=== PATIENT | male | born 1940 | race Hispanic/Latino ===

== ENCOUNTER 2017-11-24 08:10 | Emergency (ER) | payer MEDICARE ==
[2017-11-24 09:22] LABS: Bacteria,Urine 2+ /HPF (Negative); Bilirubin,Urine NEG (Negative); Blood,Urine LG (Negative); Color,Urine Yellow (Yellow); Mucus,Urine FEW /HPF; Nitrite,Urine POS (Negative); Urobilinogen,Urine < 2.0 mg/dL (<2.0)
[2017-11-24 09:27] LABS: RBC,Urine > 182.0 /HPF (0.0-6.0); WBC,Urine > 182.0 /HPF (0.0-6.0)
--- NOTE | 2017-11-24 11:07 | Emergency Department Report ---
ED Male HPI - General Chief complaint: Urogenital-Male Stated complaint: URINE RETENTION Time Seen by Provider: 11/24/17 10:56 Source: patient, RN notes reviewed Mode of arrival: Ambulatory Limitations: No Limitations - History of Present Illness Initial comments: This is a 77-year-old male who was previously unknown to this provider, his primary care doctor is Dr. Jose Barth, and he presented to the ER with a complaint of inability to urinate. He has no headache, neck pain, chest pain, abdominal pain, shortness of breath or testicular pain. Patient had a Stanton catheter placed prior to my evaluation and arrival, and this completely resolved his symptoms. The patient has no complaints at this time, and he would like to go home. Patient reports that his prostate was "checked out" by his primary care doctor within the past 5 years. He has no rectal pain or dyschezia. MD Complaint: other -: Sudden Consistency: now resolved Improves with: other Worsens with: none urinary retention, dysuria. denies: discharge, swelling, mass, rash, blood in urine, fever, nausea/vomiting, incontinence - Related Data Previous Rx's Medication Instructions Recorded Last Taken Type Nitrofurantoin [place]/M-Cryst 100 mg PO Q12HR #13 capsule 11/24/17 Unknown Rx [Macrobid CAP] Tamsulosin [Flomax] 0.4 mg PO QDAY #30 cap 11/24/17 Unknown Rx Allergies Allergy/AdvReac Type Severity Reaction Status Date / Time No Known Allergies Allergy Unverified 11/24/17 08:43 ED Review of Systems ROS: Stated complaint: URINE RETENTION Other details as noted in HPI ED Past Medical Hx - Past Medical History Previous Medical History?: Yes Hx Hypertension: Yes - Surgical History Past Surgical History?: Yes Additional Surgical History: "they took some veins out of my legs"; denies CABG/ bypass - Social History Smoking Status: Current Every Day Smoker Substance Use Type: None - Medications Home Medications: Home Medications Medication Instructions Recorded Confirmed Last Taken Type Nitrofurantoin [place]/M-Cryst 100 mg PO Q12HR #13 capsule 11/24/17 Unknown Rx [Macrobid CAP] Tamsulosin [Flomax] 0.4 mg PO QDAY #30 cap 11/24/17 Unknown Rx ED Physical Exam - General Limitations: No Limitations General appearance: alert, in no apparent distress - Head Head exam: Present: atraumatic, normocephalic - Eye Eye exam: Present: normal appearance, EOMI. Absent: nystagmus - ENT ENT exam: Present: normal exam, normal orophraynx, mucous membranes moist, normal external ear exam - Neck Neck exam: Present: normal inspection, full ROM - Respiratory Respiratory exam: Present: normal lung sounds bilaterally. Absent: respiratory distress - Cardiovascular Cardiovascular Exam: Present: regular rate, normal rhythm, normal heart sounds. Absent: systolic murmur, diastolic murmur, rubs, gallop - GI/Abdominal GI/Abdominal exam: Present: soft, normal bowel sounds. Absent: distended, tenderness, guarding, rebound, rigid, pulsatile mass - Rectal Rectal exam: Present: deferred - exam: Present: normal inspection, other (Stanton catheter in place draining clear yellow urine). Absent: testicular tenderness External exam: Present: normal external exam, other (there is no testicular tenderness. There is normal testicular lie bilaterally. There is normal cremasteric reflex bilaterally.) - Extremities Exam Extremities exam: Present: normal inspection, full ROM, normal capillary refill. Absent: pedal edema, joint swelling, calf tenderness - Back Exam Back exam: Present: normal inspection, full ROM. Absent: tenderness, CVA tenderness (R), paraspinal tenderness, vertebral tenderness - Neurological Exam Neurological exam: Present: alert, oriented X3, CN II-XII intact, normal gait, other (Extraocular movements intact. Tongue midline. No facial droop. Facial sensation intact to light touch in the V1, V2, V3 distribution bilaterally. 5 and 5 strength in 4 extremities.. Sensation is intact to light touch in 4 extremities.). Absent: motor sensory deficit - Psychiatric Psychiatric exam: Present: normal affect, normal mood - Skin Skin exam: Present: warm, dry, intact, normal color. Absent: rash ED Course Vital Signs 11/24/17 08:37 Temperature 97.8 F Pulse Rate 110 H Respiratory 20 Rate Blood Pressure 123/88 O2 Sat by Pulse 98 Oximetry ED Medical Decision Making - Lab Data Result diagrams: 11/24/17 11:09 Vital Signs 11/24/17 08:37 Temperature 97.8 F Pulse Rate 110 H Respiratory 20 Rate Blood Pressure 123/88 O2 Sat by Pulse 98 Oximetry Lab Results 11/24/17 11/24/17 Range/Units 11:09 Unknown Sodium 130 L (137-145) mmol/L Potassium 3.8 (3.6-5.0) mmol/L Chloride 88.1 L (98-107) mmol/L Carbon Dioxide 27 (22-30) mmol/L Anion Gap 19 mmol/L BUN 14 (9-20) mg/dL Creatinine 0.5 L (0.8-1.5) mg/dL Estimated GFR > 60 ml/min BUN/Creatinine Ratio 28 % Glucose 107 H (75-100) mg/dL Calcium 9.8 (8.4-10.2) mg/dL Urine Color Yellow (Yellow) Urine Turbidity Cloudy (Clear) Urine pH 6.0 (5.0-7.0) Ur Specific [place] 1.013 (1.003-1.030) Urine Protein 30 mg/dl (Negative) mg/dL Urine Glucose (UA) 50 (Negative) mg/dL Urine Ketones Neg (Negative) mg/dL Urine Blood Lg (Negative) Urine Nitrite Pos (Negative) Urine Bilirubin Neg (Negative) Urine Urobilinogen < 2.0 (<2.0) mg/dL Ur Leukocyte Esterase Lg (Negative) Urine WBC (Auto) > 182.0 H (0.0-6.0) /HPF Urine RBC (Auto) > 182.0 (0.0-6.0) /HPF Urine Bacteria (Auto) 2+ (Negative) /HPF Urine Mucus Few /HPF - Medical Decision Making Differential diagnosis, including not limited to: Obstructive uropathy, urinary tract infection, BPH, prostatic cancer Assessment and plan: 77-year-old male with resolved urinary retention, urinalysis suggests urinary tract infection, patient is afebrile with reassuring vital signs, and his tachycardia has resolved. Current vital signs includes a temperature of 97.5F, heart rate 95 bpm, saturating 99% on room air , with a blood pressure 128/84 mmHg. Stanton catheter placed, patient was placed in a leg bag, he will be discharged with antibiotic therapy, and tamsulosin. Instructed to follow up with outpatient neurology for outpatient trial of void. Critical care attestation.: If time is entered above; I have spent that time in minutes in the direct care of this critically ill patient, excluding procedure time. ED Disposition Clinical Impression: Urinary retention Disposition: DC- TO HOME OR SELFCARE Is pt being admited?: No Does the pt Need Aspirin: No Condition: Stable Instructions: Urinary Retention in Men (ED) Additional Instructions: Cultures were sent today, results will be available in the next 3-5 days. Take the antibiotic therapy as directed. Keep the Stanton catheter in place. Follow up with the listed urology specialist within the next week for outpatient trial of void. Not following up as recommended may resultant undiagnosed tumor, cancer, malignancy of the prostate. Please return to the ER right away with fevers, chills, chest pain, shortness of breath, confusion, projectile vomiting, change in mental status, inability to tolerate liquid feeds. Otherwise, make certain to follow-up with outpatient urology within the next 7 days. Referrals: JOSE BARTH MD [Primary Care Provider] - 3-5 Days BOB ROBBINS MD [Staff Physician] - 3-5 Days
[2017-11-24 11:38] LABS: BUN/Creatinine Ratio 28; Blood Urea Nitrogen 14 mg/dL (9-20); Calcium 9.8 mg/dL (8.4-10.2); Hemolysis Index 17
[2017-11-24] MEDS ORDERED: MACROBID PO ONE (12:08)
[2017-11-24 13:17] VITALS: BP 128/84
== END 2017-11-24 12:45 | disposition home or self-care (01) ==
LOC: ED 08:10
DX: R33.9 Retention of urine, unspecified (principal); I10 Essential (primary) hypertension; F17.200 Nicotine dependence, unspecified, uncomplicated
CPT/HCPCS: 36415; 51702; 80048; 81001; 87076; 87086; 87186; 99283

== ENCOUNTER 2021-05-11 08:18 | Emergency (ER) | payer MEDICARE ==
[2021-05-11] MEDS ORDERED: ASPIRIN 325 MG TAB PO ONE ×2 (08:58→12:00)
--- NOTE | 2021-05-11 09:34 | XRay Report ---
XR chest routine 2V INDICATION / CLINICAL INFORMATION: chest pain. COMPARISON: None available. FINDINGS: SUPPORT DEVICES: None. HEART /PULMONARY VASCULATURE: No significant abnormality. LUNGS / PLEURA: The lungs are hyperexpanded. There is emphysema with right upper lung scarring and le ft upper lung pulmonary opacity. There are at least 2 small nodular opacities within the left upper l cristobal and 1.1 cm opacity within the right midlung. No pleural effusion or pneumothorax. ADDITIONAL FINDINGS: There is accentuation of thoracic kyphosis with severe compression fracture of t he mid thoracic spine. IMPRESSION: 1. Left apical pulmonary opacity to reflect pleural-parenchymal scarring, infiltrate, or mass. Consid er CT for further evaluation. 2. Small indeterminate bilateral pulmonary nodules. 3. Presumably remote compression fracture of the mid thoracic spine with accentuation of thoracic kyp hosis. Signer Name: Oracio Eden MD Signed: 05/11/2021 9:30 AM Workstation Name: [id number]
[2021-05-11 10:26] LABS: Basophils # (Auto) 0.1 K/mm3 (0.0-0.1); Basophils % (Auto) 0.7 % (0.0-1.8); Eosinophils # (Auto) 0.1 K/mm3 (0.0-0.4); Hematocrit 46.9 % (35.5-45.6); Hemoglobin 15.7 gm/dl (11.8-15.2); Lymphocytes # (Auto) 1.9 K/mm3 (1.2-5.4); Lymphocytes % (Auto) 16.7 % (13.4-35.0); Mean Corpuscular HGB Conc 33 % (32-34); Mean Corpuscular Volume 96 fl (84-94); Monocytes # (Auto) 0.9 K/mm3 (0.0-0.8); Monocytes % (Auto) 7.8 % (0.0-7.3); Platelet Count 358 K/mm3 (140-440); Red Blood Count 4.86 M/mm3 (3.65-5.03); Red Cell Distribution Width 13.4 % (13.2-15.2)
[2021-05-11 10:44] LABS: Alanine Aminotransferase 7 units/L (7-56); Albumin 4.1 g/dL (3.9-5); Blood Urea Nitrogen 16 mg/dL (9-20); Calcium 11.6 mg/dL (8.4-10.2); Hemolysis Index 4
[2021-05-11 10:46] LABS: BUN/Creatinine Ratio 27
--- NOTE | 2021-05-11 11:16 | Event Note ---
ED Screening Note Date of service: 05/11/21 Time: 11:15 ED Screening Note: 81-year-old male patient with history of hypertension and tobacco use presents to the emergency department with complaints of left-sided chest pain radiating into his left upper extremity for approximately 4 weeks. Pain is no different today. States the pain seems to relieve itself for approximately half an hour at a time before returning spontaneously. No exacerbating factors identified. Takes aspirin daily. No prior history of NH or stroke. General: Awake, appropriately interactive, no acute distress. Neck: Supple. Full range of motion intact. Cardiovascular: Normal peripheral perfusion. Pulmonary: No respiratory distress. Patient is speaking normally without use of accessory muscles. Skin: No apparent rashes or lesions. Neurological: No facial asymmetry. Speech is clear. Follows commands. Patient is alert and oriented. Musculoskeletal: Moves all four extremities spontaneously with normal range of motion. Psych: Cooperative. Appropriate mood and affect. I have greeted and performed a focused rapid initial assessment of this patient. A comprehensive ED assessment and evaluation of the patient, analysis of all test results, and completion of the medical decision-making process will be co nducted by additional ED providers. This initial assessment/diagnostic orders/clinical plan/treatment(s) is/are subject to change based on patients health status, clinical progression and re-assessment. Further treatment and workup at subsequent clinical provider's discretion. Patient/guardian urged not to elope from the ED as their condition may be serious if not clinically assessed and managed.
--- NOTE | 2021-05-11 11:30 | Emergency Department Report ---
ED Chest Pain HPI - General Chief Complaint: Pain General Stated Complaint: CHEST PAIN AND HURTING ON THE LEFT SIDE Time Seen by Provider: 05/11/21 11:19 Source: patient Mode of arrival: Ambulatory Limitations: No Limitations - History of Present Illness Initial Comments: Patient is 81 years old male with history of hypertension and long history of smoking. Patient presented to the ER complaining of left-sided chest pain that radiated to the left upper extremity. Patient describes his pain as sharp, intermittent. No relieving or aggravating factors. Patient denied any history of cardiac problem before. Patient is taking aspirin daily. Patient denied any cough, shortness of breath, fever or chills. Patient stated that he received his to doses of COVID-19 vaccine. MD Complaint: chest pain -: week(s), This morning Onset: during rest, during exertion Pain Location: left chest Pain Radiation: LUE Severity: moderate Severity scale (0 -10): 5 Quality: aching, sharp Consistency: intermittent - Related Data Previous Rx's Medication Instructions Recorded Last Taken Type Nitrofurantoin [place]/M-Cryst 100 mg PO Q12HR #13 capsule 11/24/17 Unknown Rx [Macrobid CAP] Tamsulosin [Flomax] 0.4 mg PO QDAY #30 cap 11/24/17 Unknown Rx levoFLOXacin [Levaquin TAB] 500 mg PO QDAY #7 tablet 05/11/21 Unknown Rx Allergies Allergy/AdvReac Type Severity Reaction Status Date / Time No Known Allergies Allergy Unverified 11/24/17 08:43 Heart Score - HEART Score History: Moderately suspicious EKG: Non-specific Age: > 65 Risk factors: > 3 risk factors or hx of atherosclerotic disease Troponin: < normal limit HEART Score: 6 - EKG Read Time Time EKG Completed: 09:03 EKG Read Time: 09:09 ED Review of Systems ROS: Stated complaint: CHEST PAIN AND HURTING ON THE LEFT SIDE Other details as noted in HPI Comment: All other systems reviewed and negative Constitutional: denies: chills, fever Respiratory: denies: cough, shortness of breath, SOB with exertion Cardiovascular: chest pain. denies: palpitations, dyspnea on exertion Gastrointestinal: denies: abdominal pain, nausea, vomiting, diarrhea, constipation, hematemesis Musculoskeletal: denies: back pain Neurological: weakness. denies: headache, numbness, paresthesias, confusion, abnormal gait ED Past Medical Hx - Past Medical History Previous Medical History?: Yes Hx Hypertension: Yes Additional medical history: PVD - Surgical History Past Surgical History?: Yes Additional Surgical History: "they took some veins out of my legs"; denies CABG/bypass - Social History Smoking Status: Current Every Day Smoker Substance Use Type: Prescribed - Medications Home Medications: Home Medications Medication Instructions Recorded Confirmed Last Taken Type Nitrofurantoin [place]/M-Cryst 100 mg PO Q12HR #13 capsule 11/24/17 Unknown Rx [Macrobid CAP] Tamsulosin [Flomax] 0.4 mg PO QDAY #30 cap 11/24/17 Unknown Rx levoFLOXacin [Levaquin TAB] 500 mg PO QDAY #7 tablet 05/11/21 Unknown Rx ED Physical Exam - General Limitations: No Limitations General appearance: alert, in no apparent distress - Head Head exam: Present: atraumatic, normocephalic, normal inspection - Eye Eye exam: Present: normal appearance, PERRL - ENT ENT exam: Present: normal exam, normal orophraynx, mucous membranes moist - Neck Neck exam: Present: normal inspection, full ROM. Absent: tenderness, meningismus - Respiratory Respiratory exam: Present: normal lung sounds bilaterally - Cardiovascular Cardiovascular Exam: Present: regular rate, normal rhythm, normal heart sounds - GI/Abdominal GI/Abdominal exam: Present: soft, normal bowel sounds. Absent: distended, t enderness, guarding, rebound, rigid, organomegaly, mass, bruit, pulsatile mass, hernia - Extremities Exam Extremities exam: Present: normal inspection, full ROM, normal capillary refill - Back Exam Back exam: Present: normal inspection, full ROM. Absent: CVA tenderness (R), CVA tenderness (L) - Neurological Exam Neurological exam: Present: alert, oriented X3, CN II-XII intact - Psychiatric Psychiatric exam: Present: normal mood - Skin Skin exam: Present: warm, intact, normal color ED Course Vital Signs 05/11/21 05/11/21 05/11/21 08:55 11:30 11:42 Temperature 97.6 F Pulse Rate 65 68 71 Respiratory 22 29 H 21 Rate Blood Pressure 143/71 Blood Pressure 130/70 [Right] O2 Sat by Pulse 99 100 100 Oximetry 05/11/21 13:52 Temperature Pulse Rate 64 Respiratory 22 Rate Blood Pressure Blood Pressure 130/70 [Right] O2 Sat by Pulse 98 Oximetry - Reevaluation(s) Reevaluation #1: 05/11/21 14:06 Patient informed the patient that he want to sign AGAINST MEDICAL ADVICE. I went and talked to the patient. Patient is alert, oriented x3 in no acute distress and able to make sound decision. I explained to the patient the need for admission to the hospital for IV antibiotic and further management of his lung mass and a consult with a sandblaster paint sprayer. Patient stated that he does not want to be admitted to the hospital and he want to follow-up with his primary care physician. Patient daughter also called in the ER and stated that he want him to be discharged and she stated that she already talked to his primary care physician and he stated that he will see him on Thursday to arrange for pulmonology consultation and further management. Patient and family strongly informed that being discharge will put him at great risk of disability and even . Both patient and family still want him to be discharged. Patient signed AGAINST MEDICAL ADVICE. Patient and family advised to return to the ER if he develop any new symptoms. ED Medical Decision Making - Lab Data Result diagrams: 05/11/21 10:07 05/11/21 10:07 - EKG Data -: EKG Interpreted by Fl EKG shows normal: sinus rhythm Rate: normal - EKG Data Interpretation: no acute changes - Radiology Data Radiology results: report reviewed - Medical Decision Making Patient is 81 years old male with history of hypertension and long history of smoking. Patient presented to the ER complaining of left-sided chest pain that radiated to the left upper extremity. Patient describes his pain as sharp, intermittent. No relieving or aggravating factors. Patient denied any history of cardiac problem before. Patient is taking aspirin daily. Patient denied any cough, shortness of breath, fever or chills. Patient stated that he received his to doses of COVID-19 vaccine. Patient remained stable in the ER. Labs reviewed and showed leukocytosis. CT scan of the chest with IV contrast showed a cavitary mass extending from the hilum to the left upper lobe possible cavitary carcinoma versus cavitary infection. Patient received Levaquin. Patient put on isolation. I discussed the patient with Dr. Barker, he agreed to admit the patient to medical service for further management. Critical care attestation.: If time is entered above; I have spent that time in minutes in the direct care of this critically ill patient, excluding procedure time. ED Disposition Clinical Impression: Left-sided chest pain, Cavitating mass of lung Disposition: OP ADMIT IP TO THIS HOSP Is pt being admited?: Yes Condition: Stable Instructions: Nonspecific Chest Pain, Adult Prescriptions: levoFLOXacin [Levaquin TAB] 500 mg PO QDAY #7 tablet Referrals: AMMY BERRY MD [Staff Physician] - 3-5 Days Forms: AMA Form
[2021-05-11 11:43] VITALS: BP 130/70
[2021-05-11 12:46] LABS: INR 0.95 (0.87-1.13)
--- NOTE | 2021-05-11 12:46 | Cat Scan Report ---
CT CHEST WITH CONTRAST INDICATION / CLINICAL INFORMATION: chest pain OMNIPAQUE 300 100ML. TECHNIQUE: Axial CT images were obtained through the chest after 100 cc Omnipaque 300 milligrams percent IV cont rast. All CT scans at this location are performed using CT dose reduction for ALARA by means of autom ated exposure control. COMPARISON: None available. FINDINGS: HEART: No significant abnormality. THORACIC AORTA: Extensive calcified plaque thoracic aorta and its branches MEDIASTINUM and KADI: No significant abnormality. LUNGS: Severe chronic lung disease with bullous formation. Ill-defined cavitary mass extending from t he left hilum into the left upper lobe with encasement of the left pulmonary artery, cavitary carcino ma is a concern. 1.1 cm pulmonary nodules with possible central calcification present right upper lob e best delineated image 62 series 2. Spiculated lobular density posterior right upper lobe measuring 1.9 cm best delineated image 37 series 2. PLEURA: No significant pleural effusion. No pneumothorax. ADDITIONAL FINDINGS: None. UPPER ABDOMEN: No significant abnormality. SKELETAL SYSTEM: Wedge compression fracture midthoracic vertebral body approximately T7 and slightly compressed T12 vertebral body IMPRESSION: 1. Cavitary mass left upper lobe extending into the left hilum, cavitary neoplasm versus cavitary inf lammatory disease should be considered 2. Probable calcified granuloma right upper lobe 3. Lobulated slightly spiculated right upper lobe nodular density, etiology unclear. 4. Compression fractures thoracic spine age difficult determine Signer Name: Lorenzo Villar MD Signed: 05/11/2021 12:41 PM Workstation Name: [id number]
[2021-05-11 12:47] LABS: Partial Thromboplastin Time 34.9 Sec. (24.2-36.6)
--- NOTE | 2021-05-16 09:38 | Electrocardiograph Report ---
[facility] Test Date: 2021-05-11 Test Time: 09:03:54 Pat Name: NANO GANDHI Department: Room: Gender: [employer] Secretary: YANELI DUMONT : 1940 Requested By: KYLIE LABOY Order Number: [id number] Reading MD: Dwayne Carnes Measurements Intervals [place] Rate: 65 P: 79 CA: 137 QRS: -34 QRSD: 116 T: 78 QT: 421 QTc: 438 Interpretive Statements Sinus rhythm Nonspecific intraventricular conduction delay No previous ECG available for comparison Electronically Signed On 05-16-2021 9:38:15 EDT by Dwayne Carnes
== END 2021-05-11 14:45 | disposition admitted as inpatient to this hospital (09) ==
LOC: ED 08:18
DX: J98.4 Other disorders of lung (principal); R07.89 Other chest pain; I10 Essential (primary) hypertension; F17.200 Nicotine dependence, unspecified, uncomplicated; Z98.890 Other specified postprocedural states; Z79.899 Other long term (current) drug therapy
CPT/HCPCS: 36415; 71046; 71260; 80053; 82550; 83735; 83880; 84484; 85025; 85610; 85730; 87040; 93005; 96365; 99285; J1956; Q9967